=== PATIENT | male | born 1985 | race African-American/Black ===

== ENCOUNTER → 2018-04-19 | Outpatient (CLI) | payer MEDICARE, OTHER, MEDICAID ==
[~2018-04-19] MED LIST: AMOXICILLIN875 MG PO; BACTRIM DS TAB1 EACH PO; DOXYCYCLINE 10100 MG PO; IBUPROFEN 800800 MG PO; NOHOMEMEDICATIONS; NORCO 5-325 TA1 EACH PO; PROAIR HFA8.5 GM IH; TRAMADOL 50 MG50 MG PO
[2018-04-19 11:10] VITALS: BP 133/64
--- NOTE | 2018-04-19 12:40 | NUR ---
ARRIVED AMBULATORY. MADE SELF COMFORTABLE IN RECLINER. SINGLE LUMAN TICC NOTED TO RIGHT UPPER CHEST. LINE INTACT AND PATENT. INFUSION COMPLETED AND TOLERATED WELL. LINE FLUSHED AND TOLERATED WELL. DENIES QUESTIONS OR NEEDS AT DISCHARGE.
== END ==
LOC: M.INFUS 10:30
DX: A41.9 Sepsis, unspecified organism (principal); D57.1 Sickle-cell disease without crisis; K21.9 Gastro-esophageal reflux disease without esophagitis; Z87.891 Personal history of nicotine dependence

== ENCOUNTER → 2018-04-21 | Outpatient (CLI) | payer MEDICARE, OTHER, MEDICAID ==
[2018-04-21 11:20] VITALS: BP 112/47
--- NOTE | 2018-04-21 12:16 | NUR ---
RIGHT CHEST TICC LINE ACCESSED FOR INFUSION FO CEFTRAXONE 1 GRAM IVPB. GOOD BRISK BLOOD RETURN NOTED, LINE FLUSHED WITH EASE. DRESSING TO BE CHANGED ON 04-24-18.
== END ==
LOC: M.INFUS 08:00
DX: A41.9 Sepsis, unspecified organism (principal); D57.1 Sickle-cell disease without crisis; K21.9 Gastro-esophageal reflux disease without esophagitis; Z87.891 Personal history of nicotine dependence

== ENCOUNTER → 2018-04-22 | Outpatient (CLI) | payer MEDICARE, OTHER, MEDICAID ==
[2018-04-22 10:50] VITALS: BP 127/56
[2018-04-22 11:05] LABS: HEMATOCRIT 20.6 % (42.0-52.0); MCH 30.9 pg (26.0-34.0); MCHC 33.4 g/dL (28.0-37.0); MCV 92.5 fL (80.0-100.0); NUCLEATED RBCS 1 /100WBC; PLATELET COUNT* 635 thou/uL (150-400); RBC 2.22 mil/uL (4.50-6.00); RDW-CV 19.4 % (10.5-14.5); WBC 8.4 thou/uL (4.0-11.0)
[2018-04-22 11:14] LABS: HEMOGLOBIN 6.9 gm/dL (14.0-18.0)
[2018-04-22 11:17] LABS: CALCIUM 8.2 mg/dL (8.5-10.1); CREATININE 1.9 mg/dL (0.6-1.3); POTASSIUM 4.9 mmol/L (3.5-5.1)
--- NOTE | 2018-04-22 11:40 | NUR ---
ARRIVED AMUBLATORY. LABS DRAWN PER ORDER. RESULTS REVIEWED AND CRITICAL HGB NOTED. AT 6.9. CALL PLACED AND MESSAGE LEFT FOR ORDERING PHYSCIAN. PT UPDATED. STATED THAT WAS GOOD NUMBER FOR HIM RELATED TO HIS SICKLE CELL. PT WAS NOT SYMPTOMATIC. PT DISCHARGED HOME WITH FAMILY WITH INSTRUCTION TO RETURN IF SYMPTOMATIC.
[2018-04-22 12:17] LABS: ABSOLUTE BASOPHILS 0.1 thou/uL (0.0-0.2); ABSOLUTE EOSINOPHILS 0.2 thou/uL (0.0-0.7); ABSOLUTE LYMPHOCYTES 1.8 thou/uL (0.8-5.3); ABSOLUTE MONOCYTES 1.3 thou/uL (0.0-1.2)
[2018-04-22 12:18] LABS: HYPOCHROMASIA 1+; OVALOCYTES 1+; POLYCHROMASIA Occasional; TARGET CELLS 1+
[2018-04-22 12:19] LABS: ANISOCYTOSIS 1+; PLATELET ESTIMATE INCREASED; POIKILOCYTOSIS 2+
--- NOTE | 2018-04-22 14:45 | NUR ---
CALL RECIEVED AT [address] ARORA'S OFFICE. CRITICAL LAB VALUE REPORTED.
== END ==
LOC: M.INFUS 03:19
DX: A41.9 Sepsis, unspecified organism (principal); D57.1 Sickle-cell disease without crisis; J96.10 Chronic respiratory failure, unspecified whether with hypoxia or hypercapnia; K21.9 Gastro-esophageal reflux disease without esophagitis; Z99.81 Dependence on supplemental oxygen; Z86.711 Personal history of pulmonary embolism; Z87.891 Personal history of nicotine dependence

== ENCOUNTER → 2018-04-23 | Outpatient (CLI) | payer MEDICARE, OTHER, MEDICAID ==
[2018-04-23 10:40] VITALS: BP 141/57
[2018-04-23 11:41] LABS: ALBUMIN 2.9 g/dL (3.4-5.0); CALCIUM 8.1 mg/dL (8.5-10.1); CREATININE 1.8 mg/dL (0.6-1.3); POTASSIUM 4.9 mmol/L (3.5-5.1); TOTAL BILIRUBIN 2.2 mg/dL (<0.1-1.0); TOTAL PROTEIN 7.4 g/dL (6.4-8.2)
== END ==
LOC: M.INFUS 06:34
DX: A41.9 Sepsis, unspecified organism (principal); D57.1 Sickle-cell disease without crisis; J96.10 Chronic respiratory failure, unspecified whether with hypoxia or hypercapnia; K21.9 Gastro-esophageal reflux disease without esophagitis; Z86.711 Personal history of pulmonary embolism; Z87.891 Personal history of nicotine dependence

== ENCOUNTER → 2018-04-24 | Outpatient (CLI) | payer MEDICARE, OTHER, MEDICAID ==
[2018-04-24 11:00] VITALS: BP 125/68
--- NOTE | 2018-04-24 13:58 | NUR ---
ARRIVED AMBULATORY. MADE SELF COMFORTABLE IN RECLINER. PICC LINE INTACT AND PATENT. INFUSION COMPLETED AND TOELRATED WELL. DENIES ADVERSE REACTION TO MULTIPLE INFUSIONS OF SAME. DENIES QUESTIONS OR NEEDS AT DISCHARGE.
== END ==
LOC: M.INFUS 05:19
DX: A41.9 Sepsis, unspecified organism (principal); D57.1 Sickle-cell disease without crisis

== ENCOUNTER → 2018-04-25 | Outpatient (CLI) | payer MEDICARE, OTHER, MEDICAID ==
[2018-04-25 11:05] VITALS: BP 118/74
--- NOTE | 2018-04-25 12:58 | NUR ---
TICC LINE TO [facility] IJ INTACT AND PATNET. INFUSION COMPLETED AND TOLERTED WELL. TICC LINE REMOVED PER PROTOCOL. TOLERATED WELL. DENIES QUESTIONS OR NEEDS AT DISCAHRGE.
== END ==
LOC: M.INFUS 04:43
DX: A41.9 Sepsis, unspecified organism (principal); D57.20 Sickle-cell/Hb-C disease without crisis; N18.9 Chronic kidney disease, unspecified; K21.9 Gastro-esophageal reflux disease without esophagitis; I27.20 Pulmonary hypertension, unspecified; Z87.891 Personal history of nicotine dependence